=== PATIENT | female | born 1990 | race Caucasian/White ===

== ENCOUNTER → 2018-02-15 11:40 | Outpatient (CLI) | payer SELFPAY ==
--- NOTE | 2018-02-15 11:40 | DT_ITS ---
This patient was seen during an EMR downtime February 15, 2018 - February 22, 2018. This patient may have a combination of paper and electronic documentation or all paper documentation. All documentation is viewable within the e-chart portion of [facility] for each patient visit.
[2018-02-21 17:11] LABS: Chlamydia Trachomatis by PCR Negative (Negative); Neisserai gonorrhoeae by PCR Negative (Negative); Probe Check PASS; Sample Adequacy Control PASS; Specimen Processing Control PASS
[2018-03-01 12:09] LABS: HPV Reflexed? NOT INDICATED
== END ==
PROVIDERS: Visit Provider Obstetrics & Gynecology
DX: Z34.90 Encounter for supervision of normal pregnancy, unspecified, unspecified trimester (principal)
CPT/HCPCS: 87491; 87591; 88175; G0145

== ENCOUNTER → 2018-03-02 12:40 | Outpatient (CLI) | payer OTHER, SELFPAY ==
[2018-03-02 13:17] LABS: Absolute Lymphocyte Count 1.48 X10^3/ul (0.83-4.51); Absolute Neutrophil Count 6.6 X10^3/uL (2.0-7.7); Basophil# 0.03 X10^3/uL; Basophil% 0.3 % (0-1); Eosinophils% 2.3 % (0-5); Hematocrit 37.3 % (37-47); Hemoglobin 12.1 g/dl (12.0-15.0); Lymphocyte # 1.48 X10^3/ul (4.0); Mean Corp Hgb Conc 32.4 g/gl (32-36); Mean Corpuscular Hgb 28.9 pg (27.0-32.0); Mean Corpuscular Volume 89.2 fL (81-99); Mean Platelet Vol. 10.8 fl (6.2-12.0); Monocyte# 0.39 X10^3/uL; Monocyte% 4.5 % (0-10); Neutrophil # 6.57 X10^3/uL (2.7-7.7); Neutrophil % 75.7 % (47-70); Platelet Count 251 K/mm3 (150-450); RBC Distribution Width CV 13.3 % (11.6-14.6); Red Blood Count 4.18 M/mm3 (4.2-5.4); White Blood Count 8.7 K/mm3 (4.4-11.0)
[2018-03-02 13:18] LABS: POSITIVE COUNT NO; POSITIVE DIFFERENTIAL NO; POSITIVE MORPHOLOGY NO
[2018-03-03 09:50] LABS: HIV - WCH Non-Reactive (Nonreactive); Rubella IgG 34.3 IU/mL
[2018-03-03 12:13] LABS: HEPATITIS B SURFACE AG Negative (Negative)
[2018-03-05 03:47] LABS: Rapid Plasmin Reagin (RPR) NONREACTIVE (NONREACTIVE)
== END ==
PROVIDERS: Family Provider Nurse Practitioner; PCP Nurse Practitioner; Visit Provider Obstetrics & Gynecology
DX: Z34.90 Encounter for supervision of normal pregnancy, unspecified, unspecified trimester (principal)
CPT/HCPCS: 36415; 85025; 86592; 86703; 86762; 86850; 86900; 87340

== ENCOUNTER → 2018-03-02 18:01 | Outpatient (CLI) | payer OTHER, SELFPAY | PROVIDERS: Family Provider Nurse Practitioner; PCP Nurse Practitioner; Visit Provider Obstetrics & Gynecology | DX: Z34.81 Encounter for supervision of other normal pregnancy, first trimester (principal) | CPT/HCPCS: 87086 ==

== ENCOUNTER → 2018-05-05 12:14 | Outpatient (CLI) | payer OTHER, SELFPAY | PROVIDERS: Family Provider Nurse Practitioner; PCP Nurse Practitioner; Visit Provider Nurse Practitioner Women's Health | DX: Z13.89 Encounter for screening for other disorder (principal) | CPT/HCPCS: 76805 ==

== ENCOUNTER → 2018-05-27 18:19 | Outpatient (CLI) | payer OTHER, SELFPAY | PROVIDERS: Visit Provider Obstetrics & Gynecology | DX: N89.8 Other specified noninflammatory disorders of vagina (principal) | CPT/HCPCS: 87070; 87077; 87106; 87205 ==

== ENCOUNTER → 2018-06-24 16:06 | Outpatient (CLI) | payer OTHER, SELFPAY ==
[2018-06-24 17:14] LABS: Absolute Lymphocyte Count 1.43 X10^3/ul (0.83-4.51); Absolute Neutrophil Count 9.4 X10^3/uL (2.0-7.7); Basophil# 0.03 X10^3/uL; Basophil% 0.3 % (0-1); Eosinophil# 0.22 X10^3/uL; Eosinophils% 1.9 % (0-5); Lymphocyte # 1.43 X10^3/ul (4.0); Mean Corp Hgb Conc 33.3 g/gl (32-36); Mean Corpuscular Hgb 30.8 pg (27.0-32.0); Mean Corpuscular Volume 92.4 fL (81-99); Mean Platelet Vol. 11.1 fl (6.2-12.0); Monocyte# 0.71 X10^3/uL; Neutrophil # 9.38 X10^3/uL (2.7-7.7); Neutrophil % 78.8 % (47-70); Platelet Count 203 K/mm3 (150-450); RBC Distribution Width CV 12.9 % (11.6-14.6); RBC Distribution Width SD 42.7 fl (35.1-43.9); Red Blood Count 3.57 M/mm3 (4.2-5.4); White Blood Count 11.9 K/mm3 (4.4-11.0)
[2018-06-24 17:48] LABS: Glucose Challenge Gest 1H 50g 88 mg/dL (70-140)
[2018-06-24 17:50] LABS: POSITIVE COUNT NO; POSITIVE DIFFERENTIAL NO; POSITIVE MORPHOLOGY NO
== END ==
PROVIDERS: Family Provider Nurse Practitioner; PCP Nurse Practitioner; Referring Provider Nurse Practitioner Women's Health; Visit Provider Nurse Practitioner Women's Health
DX: Z34.90 Encounter for supervision of normal pregnancy, unspecified, unspecified trimester (principal)
CPT/HCPCS: 36415; 82950; 85025

== ENCOUNTER → 2018-09-03 17:54 | Outpatient (CLI) | payer OTHER, SELFPAY ==
[2018-09-03 10:27] VITALS: BMI 36.9
== END ==
PROVIDERS: Family Provider Nurse Practitioner; PCP Nurse Practitioner; Referring Provider Obstetrics & Gynecology; Visit Provider Obstetrics & Gynecology
DX: Z34.83 Encounter for supervision of other normal pregnancy, third trimester (principal)
CPT/HCPCS: 87081

== ENCOUNTER → 2018-09-08 08:13 | Outpatient (CLI) | payer OTHER, SELFPAY ==
[2018-09-03 10:27] VITALS: BMI 36.9
--- NOTE | 2018-09-08 08:16 | US_ITS ---
STUDY: SECOND AND THIRD TRIMESTER OBSTETRICAL ULTRASOUND - LIMITED REASON FOR EXAM: Female, 27 years old. LMP: PRIOR ULTRASOUND: None. TECHNIQUE: TECHNICAL QUALITY: Adequate. FINDINGS: There is a single intrauterine fetus. The fetus is in a cephalic presentation. There is demonstrated cardiac activity with a heart rate of 133 bpm. There is a normal amniotic fluid volume. The largest amniotic fluid pocket measures 6 x 4.6 cm. The amniotic fluid index (RADHA) is 16.3cm. The placenta is posterior There are Grade 2 placental changes. The cervix measures 5.6 cm in length. BIOMETRY: BPD: 9.1: 37 weeks, 0 days HC: 53: 38 weeks, 2 days AC: 33: 37 weeks, 1 days FL: 7.3: 37 weeks, 3 days Age by LMP: 37 weeks, 1 days. FLAVIA by LMP: 09/28/2017. age by prior US: 36 weeks, 5 days. FLAVIA by prior US: 09/28/2017. age by current US: 56 weeks, 5 days. FLAVIA by current US: 09/25/2017. Estimated weight: 3151 grams, +/- 460 grams, 60 percentile. No gross anomaly identified. US/OB Limited With Biometrics IMPRESSION: Viable fetus with the information above. Electronically Signed: Ginna Palomino, at 11:49 EST Tel , Service support ,
== END ==
PROVIDERS: Family Provider Nurse Practitioner; PCP Nurse Practitioner; Referring Provider Obstetrics & Gynecology; Visit Provider Obstetrics & Gynecology
DX: Z36.89 Encounter for other specified antenatal screening (principal)
CPT/HCPCS: 76816

== ENCOUNTER 2018-09-27 07:05 | Inpatient (IN) | payer OTHER, SELFPAY ==
[2018-09-24 11:11] VITALS: BMI 37.9
[2018-09-27] MEDS: Lactated Ringers 1,000 ML 50 ML IV ×2 (07:25→14:30)
[2018-09-27 07:39] VITALS: BMI 37.9
[2018-09-27 07:59] LABS: Hematocrit 33.3 % (37-47); Hemoglobin 10.2 g/dl (12.0-15.0); Mean Corp Hgb Conc 30.6 g/gl (32-36); Mean Corpuscular Hgb 26.8 pg (27.0-32.0); Mean Corpuscular Volume 87.6 fL (81-99); Mean Platelet Vol. 11.6 fl (6.2-12.0); Platelet Count 174 K/mm3 (150-450); RBC Distribution Width CV 14.6 % (11.6-14.6); RBC Distribution Width SD 46.8 fl (35.1-43.9)
[2018-09-27 08:02] LABS: Scan Indicated on CBC? Y/N NO
[2018-09-27] MEDS: 0.9% Normal Saline 100 ML IV.SOLN. INTRA-UTER (08:10)
[2018-09-27] MEDS: Oxytocin 30 units/NS 500 ml 30 UNITS/500 ML IV.SOLN IV (09:00)
[2018-09-27] MEDS: Ondansetron 4 MG/2 ML Vial IV (17:25)
[2018-09-27] MEDS: 0.9% Saline Lock 10 ML Syringe IV (18:00)
[2018-09-27] MEDS: Oxytocin 30 units/NS 500 ml 30 UNITS/500 ML IV.SOLN 334 UNITS IV (20:10)
[2018-09-27] MEDS: Methylergonovine 0.2 MG/ML Ampul IM (21:10)
[2018-09-27 22:24] VITALS: BP 130/63; PULSE 105; RESP 18; TEMP 36.5
[2018-09-27] MEDS: Acetaminophen 500 MG Tablet 1000 MG PO (22:52)
[2018-09-27 23:55] VITALS: BP 120/60; PULSE 106; RESP 18; TEMP 36.9
--- NOTE | 2018-09-28 01:31 | PCM.HP.OB ---
- Problem List (1) Status: Acute Qualifiers: Comment: carrier, genetic, and ntd screening declined. (2) Asthma during Status: Acute Comment: history of mild, doesn't have inhaler- hasn't had symptoms in years (3) Depression affecting , antepartum Status: Acute Comment: celexa/not taking (4) Prior shoulder dystocia at delivery, antepartum Status: Acute Comment: 1st , has delivered 2 infants since without SD and one weighed more. discussed low risk of recurrence patient desires vaginal (5) Supervision of normal Status: Acute Qualifiers: Comment: PRR FLAVIA 09/27/18 Fin Hood Blount, Langley Michael History Date of Admission: 09/27/18 Final FLAVIA: 09/27/18 Gestational age: 40 Weeks and 1 Days History of this : This is a 28 year-old, at 40 weeks gestational age presents for Induction of labor secondary to history of a shoulder dystocia. Patient has a history of shoulder dystocia with her first child but has gone on to have 3 deliveries since of which 2 were a larger weight than the first without any shoulder dystocia present. It was discussed with the patient expectant management versus induction of labor and patient preferred induction of labor. She denies any vaginal bleeding loss of fluid admitted good movement denies any regular contractions. Medical History: Medical History (Last Reviewed 09/24/18 @ 10:53 by Shala Cobb) Asthma J45.909 Allergies codeine Allergy (Mild, Verified 09/24/18 10:54) hives Home Medications: Home Medications docosahexanoic acid 200 mg capsule mg PO 03/02/18 Smoking Status: Never smoker Alcohol: None Number of Fetus(es): 1 Heart Tracin moderate variability reactive no decelerations category I tracing\ [place]: regular History Past Pregnancies: Past Pregnancies Pregancy History 5 Elective abortions Hx Para 3 Spontaneous abortions 1 Hx # Term Pregnancies 3 Ectopic pregnancies Hx # Pregnancies Multiple births # of living children 3 Past Pregnancies Del. Date Name GA/Weeks Outcome Route Bth Weight Gen Labor Lgth Anesthesia Del Locatn Provider FOB 02/12/11 Blake live - full term 9 lb. 9 oz. Male Silvia Rodriguez 11/23/12 Hood live - full term 10 lb. 4 oz. Male 41 Silvia Rodriguez 01/04/15 Langley live - full term 8 lbs. 13 oz. Female Silvia Rodriguez Delivery Date: 01/04/15 No notes to display Delivery Date: 11/23/12 No notes to display Delivery Date: 02/12/11 On 03/01/18 @ 15:35 Enma Quijano Shoulder dystocia Labs: Mom's Labs & Results 09/27/18 09/27/18 07:35 07:35 WBC 11.0 RBC 3.80 L Hgb 10.2 L Hct 33.3 L MCV 87.6 MCH 26.8 L MCHC 30.6 L RDW 14.6 RDW Differential 46.8 H Plt Count 174 MPV 11.6 Blood Type O POSITIVE Antibody Screen NEGATIVE Course Did the patient receive Yes care? Labs Blood Type: O RH: POSITIVE RPR/VDRL/Syphilis Nonreactive Rubella status Immune HbSAg Negative Date Done: 03/02/18 Chlamydia Negative HIV/AIDS Non-Reactive Group B Strep: Negative Current Obstetrical History Gestational Diabetes No Incompetent Cervix No Infertility No IUGR No Macrosomia Yes Hypertension/Pre-eclampsia No Placenta Previa/Abruption No PTL/PROM No Uterine anomaly No Oligohydramnios No Polyhydramnios No Multiple gestation No Past Medical History Asthma Yes: as a child Diabetes No Hypertension No Heart disease No Mitral valve prolapse No Neurologic/Seizure disorder/ No Migraines Kidney disease No Liver disease No Varicosities No Clotting disorders/Hx of DVT No Thyroid Dysfunction No Other medical diseases No Psychiatric disorders No Major trauma No Abnormal PAP smear No Sleep apnea No Mammogram in the last 2 years No Social History Marital Status: Alleged father Michael Hx Smoking No Smoking Status Never smoker Expected Infant Delivery Method: Spontaneous Vaginal Review of Systems Constitutional: Denies: Fever, Malaise Eyes: Denies: Blurred vision, Vision Change HEENT: Denies: Head Aches, Visual Changes Cardiovascular: Denies: Chest Pain, Palpitations Respiratory: Denies: Cough, Shortness of Breath, Wheezing Gastrointestinal: Denies: Abdominal Pain, Diarrhea, Nausea, Vomiting Genitourinary: Denies: Dysuria, Hematuria Musculoskeletal: Denies: Joint Pain, Muscle pain Skin: Denies: Lesions, Rash Neurological: Denies: Blurred vision, Focal weakness, Headaches Psychiatric: Denies: Anxiety, Depression Endocrine: Denies: Heat/ Cold Intolerance Hematologic/ Lymphatic: Denies: Easy Bruising, Easy Bleeding Physical Exam Vitals: Vital Signs Temp Pulse Resp BP 98.4 F 106 H 18 120/60 09/27/18 23:55 09/27/18 23:55 09/27/18 23:55 09/27/18 23:55 General: Alert, Cooperative, No apparent distress HEENT: Atraumatic, Normocephalic. Negative for: Thyromegaly, Lymphadenopathy Cardiovascular: Regular rate Lungs: Normal air movement Abdomen: Soft, Non Tender, Gravid Neurological: Deep Tendon Reflexes 2+/4 and Symmetrical, Neuro grossly intact. 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 Negative for: Vulvar lesions Estimated gestational size: Appropriate for gestational size Presentation: Cephalic Cervix Dilation (cm): 2 Assessment/Plan All Active Problems (Last Reviewed 09/24/18 @ 10:53 by Shala Cobb) (Acute) Asthma during (Acute) Depression affecting , antepartum (Acute) Prior shoulder dystocia at delivery, antepartum (Acute) Supervision of normal (Acute) This is a 28 year-old, at 40 weeks gestational age IOL h/o shoulder dystocia Patient presents IOL, plan expectant management for , fb and pitocin then AROM when able. Pain management: plans epidural GBS negative. Management of any complications: none I have reviewed the [facility] and made any clinically relevant updates.
--- NOTE | 2018-09-28 01:35 | PCM.OB.VAG ---
- Problem List (1) Status: Acute Qualifiers: Comment: carrier, genetic, and ntd screening declined. (2) Asthma during Status: Acute Comment: history of mild, doesn't have inhaler- hasn't had symptoms in years (3) Depression affecting , antepartum Status: Acute Comment: celexa/not taking (4) Prior shoulder dystocia at delivery, antepartum Status: Acute Comment: 1st , has delivered 2 infants since without SD and one weighed more. discussed low risk of recurrence patient desires vaginal (5) Supervision of normal Status: Acute Qualifiers: Comment: PRR FLAVIA 09/27/18 Fin Hood Blount, Langley Michael Vaginal Delivery Maternal Presentation: Medically Indicated Induction iol 40 weeks h/o shoulder dystocia Method of Induction: Pitocin, Car Bulb Amniotic Membrane Rupture Type: Artificial Amniotic Fluid Description: Clear Final FLAVIA: 09/27/18 Gestational age: 40 Weeks and 0 Days Date of Procedure: 09/28/18 Pre-Operative Diagnosis: iol Post-Operative Diagnosis: same Surgery/ Procedure Performed: Spontaneous Vaginal Delivery Type of Anesthesia: Epidural Description of Procedure: Patient began pushing and delivered the head in the LEEANN presentation. The head was delivered atraumatically and a loose nuchal cord x1 was identified and easily reduced over the 's head. The anterior and posterior shoulders delivered without complication followed by the rest of the infant and the infant was placed on the maternal abdomen. Delayed cord clamping was employed for approximately 60 seconds. Cord was clamped and cut and gentle traction was applied to the cord and the placenta delivered spontaneously immediately following it was noted to be intact with three-vessel cord. The perineum and vagina were inspected and noted to have no laceration. EBL was 500 cc, some mild uterine atony was encountered and remedied with bimanual massage and a dose of Methergine and IV Pitocin. Patient and infant tolerated delivery well. Presentation: LEEANN Placental Delivery Description: Spontaneous Placenta Disposition: [facility] Cord Vessel Description: 3 Vessels Cord Entanglement: Around neck x 1, loose Estimated Blood Loss: 500 A gender: Male Episiotomy Description: None Laceration: None Medications given after delivery: IV Pitocin, IM Methergin Complications: None
[2018-09-28] MEDS: Naproxen 250 MG Tablet PO ×3 (02:22→19:29)
[2018-09-28 04:30] VITALS: BP 106/68; PULSE 68; RESP 16; TEMP 36.3
--- NOTE | 2018-09-28 07:33 | PCM.PN.OB ---
Subjective: No SOB, CP. Doing well - Physical Exam General: Alert, Oriented x3 Abdomen: Soft, Non-Distended, - - FF below U. Old drainage on dressing otherwise dry and intact Vital Signs Temp Pulse Resp BP 97.4 F L 68 16 106/68 09/28/18 04:30 09/28/18 04:30 09/28/18 04:30 09/28/18 04:30 Oxygen Delivery Method Room Air Weight: 235 lb Body Mass Index (BMI) 37.9 Intake and Output for Last 24 Hours 09/26/18 09/27/18 09/28/18 23:59 23:59 23:59 Intake Total 3006 / 3006 Output Total 1400 / 1400 Balance 1606 / 1606 Laboratory Tests Past 24 Hrs 09/27/18 09/27/18 07:35 07:35 WBC 11.0 RBC 3.80 L Hgb 10.2 L Hct 33.3 L MCV 87.6 MCH 26.8 L MCHC 30.6 L RDW 14.6 RDW Differential 46.8 H Plt Count 174 MPV 11.6 Blood Type O POSITIVE Antibody Screen NEGATIVE Medical Necessity - Tobacco Use Smoking Status: Never smoker Assessment/Plan All Active Problems (Last Reviewed 09/24/18 @ 10:53 by Shala Cobb) (Acute) Asthma during (Acute) Depression affecting , antepartum (Acute) Prior shoulder dystocia at delivery, antepartum (Acute) Supervision of normal (Acute) PPD #1: Routine care. . No concerns
[2018-09-28 08:06] VITALS: BP 102/52; PULSE 76; RESP 16; TEMP 36.3
[2018-09-28 11:54] VITALS: BP 117/71; PULSE 100; RESP 15; TEMP 36.8; O2SAT 94
[2018-09-28 16:35] VITALS: BP 112/59; PULSE 90; RESP 16; TEMP 36.7; O2SAT 98
[2018-09-28] MEDS: Acetaminophen 500 MG Tablet 1000 MG PO (18:47)
[2018-09-28 19:00] VITALS: BP 122/75; PULSE 83; RESP 16; TEMP 36.9; O2SAT 100
[2018-09-28 21:00] VITALS: BP 113/59; PULSE 82; RESP 16; TEMP 36.6; O2SAT 98
[2018-09-29 02:41] VITALS: BP 103/51; PULSE 79; RESP 18; TEMP 36.3; O2SAT 96
[2018-09-29 02:49] VITALS: BP 126/63
[2018-09-29 08:00] VITALS: BP 121/70; PULSE 86; RESP 18; TEMP 37
--- NOTE | 2018-09-29 08:04 | PCM.PN.OB ---
Subjective: No CP, SOB. Some headache, fullness in ears. (difficult epidural). Plans home today. - Physical Exam General: Alert, Oriented x3 Abdomen: Soft, Non Tender, - - FF below U Vital Signs Temp Pulse Resp BP Pulse Ox 97.4 F L 79 18 126/63 H 96 09/29/18 02:41 09/29/18 02:41 09/29/18 02:41 09/29/18 02:49 09/29/18 02:41 Oxygen Delivery Method Room Air Weight: 235 lb Body Mass Index (BMI) 37.9 Intake and Output for Last 24 Hours 09/27/18 09/28/18 09/29/18 23:59 23:59 23:59 Intake Total 3006 / 3006 Output Total 1400 / 1400 Balance 1606 / 1606 Medical Necessity - Tobacco Use Smoking Status: Never smoker Assessment/Plan All Active Problems (Last Reviewed 09/24/18 @ 10:53 by Shala Cobb) (Acute) Asthma during (Acute) Depression affecting , antepartum (Acute) Prior shoulder dystocia at delivery, antepartum (Acute) Supervision of normal (Acute) PPD#2: Routine care. For headache: lay flat, force fluids. OTC pain med on routine schedule. May consider small amount caffeine and antihistamine at home. Plans home today.
--- NOTE | 2018-09-29 08:08 | DCINST_ITS ---
Additional Instructions: If you experience any of the following, contact your healthcare provider. * Bleeding that soaks a pad every hour for 2 hours * Fever 100.4 or higher * Unrelieved incision or abdominal pain * Swelling, redness, discharge or bleeding from your incision or episiotomy site * Your incision begins to separate * Problems urinating (including inability to urinate or burning while urinating). * Visual changes * Severe headache * Flu-like symptoms * Pain or redness in one of both of your breasts * Pain, warmth, tenderness or swelling in your legs, especially the calf area * Frequent nausea and vomiting * Symptoms of depression or anxiety If you experience any of the following, call 911 or go to the nearest Emergency Room. * Chest pain * Problems breathing * Seizure activity * Partial or complete paralysis of a body part, slurred speech, weakness or drooping of the face, or a sudden inability to walk or hold your balance Allergies/Adverse Reactions: Allergies codeine Allergy (Mild, Verified 09/24/18 10:54) hives Medications to take at Discharge docosahexanoic acid 200 mg capsule mg PO 03/02/18 Primary Care Physician: Crissy Arenas NP-C [Primary Care Provider] - Test Results: Test results from this visit will be discussed in further detail at your follow- up appointment, if applicable.
--- NOTE | 2018-09-29 08:08 | PCM.DCVAG ---
Additional Instructions: If you experience any of the following, contact your healthcare provider. Bleeding that soaks a pad every hour for 2 hours Fever 100.4 or higher Unrelieved incision or abdominal pain Swelling, redness, discharge or bleeding from your incision or episiotomy site Your incision begins to separate Problems urinating (including inability to urinate or burning while urinating). Visual changes Severe headache Flu-like symptoms Pain or redness in one of both of your breasts Pain, warmth, tenderness or swelling in your legs, especially the calf area Frequent nausea and vomiting Symptoms of depression or anxiety If you experience any of the following, call 911 or go to the nearest Emergency Room. Chest pain Problems breathing Seizure activity Partial or complete paralysis of a body part, slurred speech, weakness or drooping of the face, or a sudden inability to walk or hold your balance Allergies/Adverse Reactions: Allergies codeine Allergy (Mild, Verified 09/24/18 10:54) hives Medications to take at Discharge docosahexanoic acid 200 mg capsule mg PO 03/02/18 Primary Care Physician: Crissy Arenas NP-C [Primary Care Provider] - Test Results: Test results from this visit will be discussed in further detail at your follow-up appointment, if applicable.
[2018-09-29] MEDS: Naproxen 250 MG Tablet PO (08:09)
[2018-09-29 11:00] VITALS: BP 111/72; PULSE 78; RESP 18; TEMP 36.8
[2018-09-29 12:30] VITALS: BP 111/72; PULSE 78; RESP 18; TEMP 36.8
== END 2018-09-29 14:40 | disposition home or self-care (01) | DRG 807 ==
PROVIDERS: Admitting Provider Obstetrics & Gynecology; Family Provider Nurse Practitioner; PCP Nurse Practitioner; Referring Provider Obstetrics & Gynecology; Visit Provider Obstetrics & Gynecology
DX: O69.81X0 Labor and delivery complicated by cord around neck, without compression, not applicable or unspecified (principal); Z37.0 Single live birth; Z87.59 Personal history of other complications of pregnancy, childbirth and the puerperium; O75.89 Other specified complications of labor and delivery; O99.52 Diseases of the respiratory system complicating childbirth; J45.20 Mild intermittent asthma, uncomplicated; O99.343 Other mental disorders complicating pregnancy, third trimester; F32.9 Major depressive disorder, single episode, unspecified; O89.4 Spinal and epidural anesthesia-induced headache during the puerperium; Z3A.40 40 weeks gestation of pregnancy
CPT/HCPCS: 59025; 59050; 85027; 86850; 86900; 99218; J7120; A4216; G0378; J2405